=== PATIENT | male | born 1950 | race Caucasian/White ===

== ENCOUNTER 2018-12-15 06:25 | Day surgery (SDC) | payer OTHER ==
[2018-12-13 11:57] LABS: Absolute Lymphocytes (CBC) 2.6 K/uL (0.7-4.9); Absolute Monocytes 0.9 K/uL (0.1-1.3); Absolute Neutrophil 9.6 K/uL (1.8-8.0); Basophils % 0.6 % (0-1.3); Eosinophils % 0.6 % (0-4.4); Hematocrit 49.3 % (39.6-49.0); Lymphocytes % 19.8 % (15.3-44.8); MPV 9.8 fL (7.6-11.3); Monocytes % 6.6 % (3.3-12.3)
[2018-12-15] MEDS ORDERED: NA CHLORIDE 0.9% 1,000 ML ONE (06:42)
[2018-12-15] MEDS: D50W 25 GM/50 ML SYRINGE IV ONE ×2 (07:04→08:35)
[2018-12-15] MEDS ORDERED: FENTANYL CITR 100 MCG/2 ML ONE (07:22)
[2018-12-15] MEDS ORDERED: MIDAZOLAM HCL 2 MG/2 ML INJ ONE (07:23)
[2018-12-15] MEDS ORDERED: LIDOCAINE 2% MPF 5 ML VIAL ONE (07:23)
[2018-12-15] MEDS ORDERED: DEXAMETHASONE 10 MG/ML VIAL ONE (07:23)
[2018-12-15] MEDS ORDERED: PROPOFOL 200 MG/20 ML VIAL IV ONE (07:23)
[2018-12-15] MEDS ORDERED: ROCURONIUM 50 MG/5 ML VIAL IV ONE (07:23)
[2018-12-15] MEDS ORDERED: NA CHLORIDE 0.9% 0 ML ONE (07:28)
[2018-12-15] MEDS ORDERED: LIDOCAINE 1% W/EPI 1:100,000 MDV 50 ML VIAL ONE (07:28)
[2018-12-15] MEDS ORDERED: OXYMETAZOLINE HCL 0.05% 15ML NAS ONE ×2 (07:28→07:31)
[2018-12-15] MEDS ORDERED: EPHEDRINE SULF 50 MG/ML VIAL ONE (08:00)
--- NOTE | 2018-12-15 08:20 | P.BOP ---
Preoperative diagnosis: R nasal mass Postoperative diagnosis: R middle turbinate mass Primary procedure: R NE with biopsy/removal of mass Fulfillment Specialist: NONE,NONE Estimated blood loss: 10ml Specimen: R middle turbinate tumor Anesthesia: General Complications: None Implants: R NC sugicel and Xerogel Fluids & blood products: crystalloid 900mL Transferred to: Recovery Room Condition: Good
[2018-12-15] MEDS ORDERED: Ringers Lactate 1,000 ML IV ONE (08:23)
[2018-12-15] MEDS ORDERED: NEOSTIGMINE 1 MG/ML -10 ML VIAL ONE (08:30)
[2018-12-15] MEDS ORDERED: GLYCOPYRROLATE 0.2 MG/ML SYR ONE ×2 (08:30)
[2018-12-15] MEDS: MORPHINE 4 MG/ML SYR ONE ×2 (08:59→09:15)
[2018-12-15] MEDS ORDERED: ONDANSETRON HCL 40 MG/20 ML VIAL ONE (09:23)
[2018-12-15] MEDS ORDERED: TRAMADOL HCL 50 MG TAB ONE (10:10)
[2018-12-15] MEDS ORDERED: HYDROCODONE/APAP 5/325 MG TAB ONE (11:01)
[2018-12-15 11:36] VITALS: BP 160/80; TEMP 97.2; O2SAT 98
--- NOTE | 2018-12-16 13:30 | OP ---
Date of Procedure: 12/16/2018 Surgeon: Sharon Linda MD Preoperative Diagnosis: Right nasal mass. Postoperative Diagnosis: Right nasal mass. Pathology pending. Procedure: Nasal endoscopy with nasal polypectomy/biopsy and control of bleeding. Indication For Procedure: Mr. Louis is a 68-year-old with a history of multiple skin cancers, who is followed in the [facility], following excisions of these cancers. At his recent followup visit, jorge luis taylor was complaining of nasal obstruction and sinus complaints. He underwent a nasal endoscopy in the [facility] that showed a large pink firm vascular-appearing mass within the right nasal cavity. He was tr eated for sinusitis and underwent CT of the sinus following maximal medical therapy. Clinically, his symptoms were mildly improved. The CT scan demonstrated a right maxillary mucosal retention cyst, t he nasal cavity mass with uncertain attachment point consistent with physical exam, but the remaining sinuses were otherwise normal. The patient takes aspirin and Plavix for cardiovascular disease and due to this, decision was made to perform an excisional biopsy of this mass in the operating room. T [place] risks, benefits, and alternatives to the procedure were discussed with the patient and his . He agreed to proceed. Description Of Procedure: The patient was brought to the operating room. He was placed under genera l anesthesia via oral endotracheal tube. The head of bed was turned 90 degrees. The patient's nasal hairs were trimmed and a 0-degree endoscope was used to perform a nasal endoscopy. The left septum, inferior turbinate, middle turbinate, middle meatus, sphenoid ethmoid recess, and nasopharynx were a ll unremarkable with no evidence of infection, excessive mucus, polyp, or other mass. The right nasa l cavity showed a large red, mildly vascular appearing mass. After suctioning of mucus, gentle palpa tion of the mass was performed. The attachment point appeared to be the inferior aspect of the middl e turbinate. There was no appreciable attachment to the inferior turbinate or to the septum. Passin g the 0-degree scope beneath the tumor, the nasopharynx and soft palate, sphenoid ethmoid recess, and eustachian tube opening, all appeared to be smooth and pink without evidence of involvement. The mi ddle turbinate was injected with 1% lidocaine with epinephrine. An endoscopic scissor was used to cu t the inferior 1/3 of the middle turbinate along its length in order to free the tumor from the soft tissue attachments. The tumor was then grasped and removed. The superior aspect at its attachment w as avulsed off the tumor prior to removal of the tumor and was included in the main specimen. After removal of the tumor, its measurement on the field was approximately the 3.5 cm in total length. The nasal cavity was packed with Afrin-soaked pledgets for several minutes. After removal, the area was suctioned and the lateral nasal wall was examined. There was no clear evidence of involvement of th e lateral nasal wall. The uncinate process appeared unremarkable at the most posterior aspect with t he middle turbinate. The degree of involvement or any evidence of residual tumor attachment was diff icult to appreciate. The area was having moderate oozing. These areas of oozing were cauterized usi ng the suction Bovie cautery. The cut surface of the middle turbinate was likewise cauterized. The area was then again packed with Afrin-soaked pledgets for about 5 minutes. After removal, there was minimal oozing. Due to patient's need to resume aspirin and Plavix in the early postoperative course , a piece of Surgicel was packed along the mucosal edges. A Zero gel dissolvable nasal dressing was then applied to this area as well and copiously saturated with saline. The nasopharynx was suctioned and appeared to be free from any oozing from the surgical site. The patient was then returned to tn re of anesthesia for awakening and extubation in the operating room, which proceeded without difficul ty. Disposition: The patient will be discharged home later today with instructions for frequent use of n day saline spray only with plan to resume aspirin and Plavix on postoperative day 3 and follow up [facility] Dr. Linda on postoperative day 10. The patient's family is advised that due to the unusual natu re of sinonasal tumors that additional testing or pathologic consultation may be necessary and result s are expected to take longer than typical. The patient's expressed understanding and they will follo w up with me in about 10 days. YOLI/ROSY Voice ID: [id number] Report ID: [id number]
== END 2018-12-15 11:30 | disposition home or self-care (01) ==
LOC: OR 06:25
PROVIDERS: ATTEND Otolaryngology
PROC: 09BL8ZX Excision of Nasal Turbinate, Via Natural or Artificial Opening Endoscopic, Diagnostic (ICD-10-PCS; principal; 2018-12-15 07:30)
DX: D14.0 Benign neoplasm of middle ear, nasal cavity and accessory sinuses (principal); Z85.828 Personal history of other malignant neoplasm of skin; I25.10 Atherosclerotic heart disease of native coronary artery without angina pectoris; I10 Essential (primary) hypertension; F17.210 Nicotine dependence, cigarettes, uncomplicated; Z79.4 Long term (current) use of insulin; Z79.82 Long term (current) use of aspirin; Z79.02 Long term (current) use of antithrombotics/antiplatelets; Z86.73 Personal history of transient ischemic attack (TIA), and cerebral infarction without residual deficits; Z95.1 Presence of aortocoronary bypass graft
CPT/HCPCS: 31237; 93005; 85025; 36415; 82962 ×4; 88305; 88311; J2704; J2710; J2250; J3010; J1100; J2405; J7030